=== PATIENT | male | born 1965 | race Caucasian/White ===

== ENCOUNTER 2017-02-21 20:04 | Emergency (ER) | payer OTHER ==
[2017-02-21 20:29] VITALS: O2SAT 98
--- NOTE | 2017-02-21 21:40 | C.PDOC ---
History Of Present Illness 52 y/o male presents to the ED with complains of fever and associated headache x3-4 days. Pt denies cough, sore throat, chest pain, SOB, abdominal pain, back pain, vomiting, vision changes, dysuria or any other complaints. No recent travel. Time Seen by Provider: 02/21/17 20:32 Chief Complaint (Nursing): Headache History Per: Patient History/Exam Limitations: no limitations Onset/Duration Of Symptoms: Days Current Symptoms Are (Timing): Still Present Severity: Moderate Quality: "Pain" Preceeding Symptoms: None Recent travel outside of the [place]: No Past Medical History Reviewed: Historical Data, Nursing Documentation, Vital Signs Vital Signs: Last Vital Signs Temp 99.2 F 02/21/17 21:42 Pulse 86 02/21/17 21:42 Resp 18 02/21/17 21:42 BP 112/67 02/21/17 21:42 Pulse Ox 98 02/21/17 21:47 Family History: States: Unknown Family Hx - Social History Hx Tobacco Use: No Hx Alcohol Use: No Hx Substance Use: No - Immunization History Hx Tetanus Toxoid Vaccination: No Hx Influenza Vaccination: Yes Hx Pneumococcal Vaccination: No Review Of Systems Except As Marked, All Systems Reviewed And Found Negative. Constitutional: Positive for: Fever Eyes: Negative for: Vision Change ENT: Negative for: Throat Pain Cardiovascular: Negative for: Chest Pain Respiratory: Negative for: Cough, Shortness of Breath Gastrointestinal: Negative for: Vomiting, Abdominal Pain Genitourinary: Negative for: Dysuria Musculoskeletal: Negative for: Back Pain Neurological: Positive for: Headache Physical Exam - Physical Exam Appears: Non-toxic, No Acute Distress Skin: Warm, Dry, No Rash Head: Atraumatic, Normacephalic Eye(s): bilateral: Normal Inspection, PERRL, EOMI Ear(s): Bilateral: Normal Nose: Normal Oral Mucosa: Moist Throat: No Erythema, No Exudate Neck: Normal, Normal ROM, Supple Chest: Symmetrical Cardiovascular: Rhythm Regular, No Friction Rub, No Murmur Respiratory: Normal Breath Sounds, No Rales, No Rhonchi, No Wheezing Gastrointestinal/Abdominal: Normal Exam, Soft, No Tenderness Extremity: Normal ROM, No Tenderness, No Swelling Extremity: Bilateral: Atraumatic Neurological/Psych: Oriented x3, Normal Speech, Normal Motor Gait: Steady ED Course And Treatment O2 Sat by Pulse Oximetry: 98 (room air) Pulse Ox Interpretation: Normal Disposition - Disposition Referrals: Heath Hardy MD [Staff Provider] - Disposition: HOME/ ROUTINE Disposition Time: 21:41 Condition: GOOD Additional Instructions: Follow up with the medical doctor within 1-2 days. Return if worsened. Prescriptions: Ibuprofen [Motrin] 600 mg PO TID #21 tab predniSONE [Prednisone] 10 mg PO BID #10 tab Instructions: Influenza (ED) Forms: Work Excuse - Clinical Impression Clinical Impression: Influenza-like illness, Viral syndrome - PA / TALENT SCOUT / Resident Statement MD/DO has reviewed & agrees with the documentation as recorded. - Scribe Statement The provider has reviewed the documentation as recorded by the Nayana Sanchez All medical record entries made by the Nayana were at my direction and personally dictated by me. I have reviewed the chart and agree that the record accurately reflects my personal performance of the history, physical exam, medical decision making, and the department course for this patient. I have also personally directed, reviewed, and agree with the discharge instructions and disposition.
[2017-02-21 21:43] VITALS: BP 112/67; PULSE 86; RESP 18; TEMP 99.2
== END 2017-02-21 21:57 | disposition home or self-care (01) ==
LOC: C.ER 20:04
DX: J11.1 Influenza due to unidentified influenza virus with other respiratory manifestations (principal); B34.9 Viral infection, unspecified
CPT/HCPCS: 96372; 99283; J1885

== ENCOUNTER 2017-10-13 14:24 | Emergency (ER) | payer OTHER ==
[2017-10-13 14:53] VITALS: TEMP 98.4; O2SAT 99
[2017-10-13] MEDS ORDERED: Naproxen 550 mg Tab PO STA (17:04)
--- NOTE | 2017-10-13 17:06 | C.PDOC ---
History Of Present Illness Pt c/o b/l upper extremity pain. He states he was recently exerting them by hammering. Pain is upon ROM, no pain at rest. Time Seen by Provider: 10/13/17 16:58 Chief Complaint (Nursing): Upper Extremity Problem/Injury History Per: Patient Onset/Duration Of Symptoms: Days (8) Current Symptoms Are (Timing): Still Present Quality: "Pain" Severity: Mild Exacerbating Factor(s): Strenuous Use Of Affected Area Additional History Per: Prior Records Past Medical History Reviewed: Historical Data, Nursing Documentation, Vital Signs Vital Signs: Last Vital Signs Temp 98.4 F 10/13/17 14:51 Pulse 65 10/13/17 14:51 Resp 18 10/13/17 14:51 BP 126/55 L 10/13/17 14:51 Pulse Ox 99 10/13/17 14:51 - Medical History PMH: No Chronic Diseases Family History: States: Unknown Family Hx - Social History Hx Tobacco Use: No Hx Alcohol Use: No Hx Substance Use: No - Immunization History Hx Tetanus Toxoid Vaccination: No Hx Influenza Vaccination: Yes Hx Pneumococcal Vaccination: No Review Of Systems Except As Marked, All Systems Reviewed And Found Negative. Constitutional: Negative for: Fever, Weakness Cardiovascular: Negative for: Chest Pain Respiratory: Negative for: Shortness of Breath, Hemoptysis Gastrointestinal: Negative for: Vomiting, Abdominal Pain Genitourinary: Negative for: Dysuria, Hematuria Musculoskeletal: Positive for: Arm Pain. Negative for: Neck Pain, Leg Pain Skin: Negative for: Rash Neurological: Negative for: Weakness, Numbness Physical Exam - Physical Exam Appears: Non-toxic, No Acute Distress Skin: Normal Color, Warm, Dry, No Rash Head: Atraumatic, Normacephalic Eye(s): bilateral: Normal Inspection, PERRL, EOMI Neck: Normal ROM, Supple Cardiovascular: Rhythm Regular Respiratory: Normal Breath Sounds, No Accessory Muscle Use Gastrointestinal/Abdominal: Soft, No Tenderness Back: No CVA Tenderness Extremity: Normal ROM, No Tenderness, No Pedal Edema, No Calf Tenderness, Capillary Refill (wnl), No Swelling Extremity: Bilateral: Normal Color And Temperature Pulses: Left Radial: Normal, Right Radial: Normal Neurological/Psych: Oriented x3, Normal Motor, Normal Sensation ED Course And Treatment O2 Sat by Pulse Oximetry: 99 Pulse Ox Interpretation: Normal Disposition Counseled Patient/Family Regarding: Diagnosis, Need For Followup, Rx Given - Disposition Referrals: Heath Hardy MD [Staff Provider] - Disposition: HOME/ ROUTINE Disposition Time: 17:08 Condition: STABLE Additional Instructions: Drink plenty of fluid. Follow up with your doctor for further evaluation and treatment. Return to the ER if you develop worsening of symptoms or if you have any other concerns. Prescriptions: Naproxen [Naprosyn] 1 tab PO BID PRN #20 tab PRN Reason: Pain Instructions: Musculoskeletal Pain (ED) - Clinical Impression Clinical Impression: Muscle strain
[2017-10-13 17:10] VITALS: BP 136/88; PULSE 75; RESP 16
[2017-10-13] MEDS ORDERED: Naproxen 550 mg Tab PO ONE (17:10)
== END 2017-10-13 17:12 | disposition home or self-care (01) ==
LOC: C.ER 14:24
DX: S46.919A Strain of unspecified muscle, fascia and tendon at shoulder and upper arm level, unspecified arm, initial encounter (principal); X58.XXXA Exposure to other specified factors, initial encounter

== ENCOUNTER 2017-12-31 09:28 | Emergency (ER) | payer OTHER ==
[2017-12-31 09:37] VITALS: BMI 25.1
[2017-12-31 09:40] VITALS: RESP 18
--- NOTE | 2017-12-31 10:20 | C.PDOC ---
History Of Present Illness 52 y/o male presents to ED with complaints of right elbow pain radiating up and down arm for "several months". Patient states he was seen in September 2017 for same complaints and given Naproxen but reports he did not follow up with Ortho. Patient reports he ran out of Naproxen and denies new injury, weakness, numbness or any other complaints at this time. Time Seen by Provider: 12/31/17 09:39 Chief Complaint (Nursing): Upper Extremity Problem/Injury History Per: Patient History/Exam Limitations: no limitations Onset/Duration Of Symptoms: Days Current Symptoms Are (Timing): Still Present Quality: "Pain" Past Medical History Reviewed: Historical Data, Nursing Documentation, Vital Signs Vital Signs: Last Vital Signs Temp 98.1 F 12/31/17 10:27 Pulse 64 12/31/17 10:27 Resp 18 12/31/17 10:27 BP 127/69 12/31/17 10:27 Pulse Ox 98 12/31/17 10:27 - Medical History PMH: No Chronic Diseases Surgical History: No Surg Hx Family History: States: No Known Family Hx - Social History Hx Tobacco Use: No Hx Alcohol Use: No Hx Substance Use: No - Immunization History Hx Tetanus Toxoid Vaccination: No Hx Influenza Vaccination: Yes Hx Pneumococcal Vaccination: No Review Of Systems Except As Marked, All Systems Reviewed And Found Negative. Musculoskeletal: Positive for: Arm Pain Skin: Negative for: Bruising Neurological: Negative for: Weakness, Numbness Physical Exam - Physical Exam Appears: Non-toxic, No Acute Distress Skin: Warm, Dry, No Rash Head: Atraumatic, Normacephalic Eye(s): bilateral: Normal Inspection Neck: Normal ROM, Supple Extremity: Tenderness (Mild to right elbow), Capillary Refill (<2 seconds), No Deformity, No Swelling Extremity: Bilateral: Normal ROM Pulses: Left Radial: Normal, Right Radial: Normal Neurological/Psych: Oriented x3, Normal Motor, Normal Sensation ED Course And Treatment O2 Sat by Pulse Oximetry: 100 (RA) Pulse Ox Interpretation: Normal Progress Note: Nparosen administered and patient discharged with follow up to Ortho. Disposition Counseled Patient/Family Regarding: Diagnosis, Need For Followup, Rx Given - Disposition Referrals: [facility] [place] [Outside] [facility] [Outside] Eileen Zelaya MD [Staff Provider] - Disposition: HOME/ ROUTINE Disposition Time: 10:20 Condition: STABLE Additional Instructions: YOU NEED TO FOLLOW UP WITH ORTHOPEDICS WITHIN 1 WEEK USE MEDICATION FOR PAIN NEEDED RETURN TO EMERGENCY ROOM IF SYMPTOMS WORSEN NECESITA SEGUIR CON ORTOPEDIA DENTRO DE 1 SEMANA USE MEDICAMENTO PARA EL DOLOR SEGN SEA NECESARIO REGRESE AL LUIS MANUEL DE EMERGENCIA SI LOS SNTOMAS EMPEORAN Prescriptions: Naproxen [Naprosyn] 1 tab PO BID PRN #25 tab PRN Reason: Pain Instructions: Elbow Sprain (DC) Forms: [employer] (Kenyan) Print Language: INDONESIAN - POA Present On Arrival: None - Clinical Impression Clinical Impression: Chronic arm pain, Elbow pain, right - Scribe Statement The provider has reviewed the documentation as recorded by the Scribgeoffrey Ceja All medical record entries made by the Scribe were at my direction and personally dictated by me. I have reviewed the chart and agree that the record accurately reflects my personal performance of the history, physical exam, medical decision making, and the department course for this patient. I have also personally directed, reviewed, and agree with the discharge instructions and disposition.
[2017-12-31 10:28] VITALS: BP 127/69; PULSE 64; TEMP 98.1
[2017-12-31 11:48] VITALS: O2SAT 100
== END 2017-12-31 10:28 | disposition home or self-care (01) ==
LOC: C.ER 09:28
DX: G89.29 Other chronic pain (principal); M25.521 Pain in right elbow